=== PATIENT | female | born 1995 | race American Indian/Alaskan Native ===

== ENCOUNTER 2018-05-01 21:34 | Inpatient (IN) | payer MEDICAID, OTHER ==
[2018-05-01] MEDS ORDERED: ZOFRAN IV PRN (23:22)
[2018-05-01] MEDS ORDERED: XYLOCAINE 2% INFILTRATI ONE (23:22)
[2018-05-01] MEDS ORDERED: BRETHINE SUB-Q PRN (23:22)
[2018-05-01] MEDS ORDERED: BRETHINE IVP PRN (23:22)
[2018-05-01] MEDS ORDERED: CERVIDIL VG ONE (23:22)
[2018-05-01] MEDS ORDERED: MINERAL OIL PO PRN (23:22)
[2018-05-01] MEDS ORDERED: AMBIEN PO PRN (23:25)
--- NOTE | 2018-05-01 23:28 | History and Physical Report ---
History of Present Illness Date of examination: 05/01/18 Date of admission: 05/01/18 21:34 Chief complaint: Postdates IOL History of present illness: EDC Confirmation: 04/22/2018 Past History : 1 Term Births: 0 Premature Births: 0 Living Children: 0 Para: 0 Mult. Births: 0 Prev : 0 Prev. attempt? 0 Aborta: 0 Elect. Ab: 0 Spont. Ab: 0 Ectopics: 0 Past Medical History: Negative Past Medical History Past Surgical History: negative Past Medical History Anesthesia Complications: negative Anemia: negative Autoimmune Disorder: negative Bleeding Disorder: negative Blood Transfusions: negative Breast Disease: negative Diabetes: negative Heart Disease: negative Hypertension: negative Hepatitis/Liver Disease: negative Kidney Disease/UTI: negative Neurologic/Epilepsy/Migraines: negative Phlebitis/Varicosities: negative Psychiatric: negative Pulmonary Disease/Asthma: negative Thyroid Disease: negative Hospitalizations: negative Surgery (Non-track fitter): negative Abnormal PAP: negative Family Hx: no known family hx Social Hx: single Works [employer] no ETOH/Drugs/Smoking Infection History Hx of STD: none HIV Risk Eval: low risk Hepatitis B Risk Eval: low risk Genetic History Congenital Heart Defect: Mom: no Dad: no Chris Disease: Mom: no Dad: no Thalassemia Mom: no Dad: no Neural Tube Defect Mom: no Dad: no Down's Syndrome Mom: no Dad: no Puma-Sachs Mom: no Dad: no Sickle Cell Disease/Trait Mom: no Dad: no Hemophilia Mom: no Dad: no Muscular Dystrophy Mom: no Dad: no Cystic Fibrosis Mom: no Dad: no Blount Chorea Mom: no Dad: no Mental Retardation Mom: no Dad: no Fragile X Mom: no Dad: no Other Genetic/Chromosomal Disorder Mom: no Dad: no Child w/other defect Mom: no Dad: no Enviromental Exposures Xray Exposure: no Medication, drug, or alcohol use since LMP: no Chemical/Other Exposure: no Exposure to Cat Liter: no Hx of Parvovirus (Fifth Disease): no Occupational Exposure to Children: none Active Medications (reviewed today): None Past History Past Medical History: other (see HPI) Past Surgical History: other (see HPI) SURGERY TEACHER History: other (see HPI) Family/Genetic History: other (see HPI) - Obstetrical History Expected Date of Delivery: 04/22/18 Actual Gestation: 41 Week(s) 3 Day(s) : 1 Para: 0 Hx # Term Pregnancies: 0 Number of Pregnancies: 0 Spontaneous Abortions: 0 Induced : 0 Number of Living Children: 0 Medications and Allergies Allergies Allergy/AdvReac Type Severity Reaction Status Date / Time No Known Allergies Allergy Verified 05/01/18 23:29 Home Medications Medication Instructions Recorded Confirmed Last Taken Type No Known Home Medications [No 05/01/18 05/01/18 Unknown History Reported Home Medications] Pnv No.95/Ferrous Fum/Folic AC 1 each PO DAILY 05/01/18 05/01/18 05/01/18 History [ Formula Tablet] Active Meds: Active Medications Dinoprostone (Cervidil) 10 mg VG ONCE ONE Stop: 05/01/18 23:23 Ephedrine Sulfate (Ephedrine Sulfate) 10 mg IV Q2M PRN PRN Reason: Hypotension Lactated Ringer's (Lactated Ringers) 1,000 mls @ 125 mls/hr IV DIRECT CESAR Oxytocin/Sodium Chloride (Pitocin/Ns 20 Unit/1000ml Drip) 20 units in 1,000 mls @ 125 mls/hr IV DIRECT CESAR Lidocaine (Xylocaine 2%) 20 ml INFILTRATI ONCE ONE Stop: 05/01/18 23:23 Mineral Oil (Mineral Oil) 30 ml PO QHS PRN PRN Reason: Constipation Ondansetron HCl (Zofran) 4 mg IV Q8H PRN PRN Reason: Nausea And Vomiting Terbutaline Sulfate (Brethine) 0.25 mg SUB-Q ONCE PRN PRN Reason: Hyperstimulation/Hypertonicity Terbutaline Sulfate (Brethine) 0.25 mg IVP ONCE PRN PRN Reason: Hyperstimulation/Hypertonicity Review of Systems All systems: negative - Vital Signs Vital signs: Vital Signs Temp Pulse Resp BP 98.0 F 89 16 111/70 05/01/18 22:41 05/01/18 22:41 05/01/18 22:41 05/01/18 22:41 Temp Pulse Resp BP Pulse Ox 98.0 F 89 16 111/70 05/01/18 22:41 05/01/18 22:52 05/01/18 22:41 05/01/18 22:52 - Physical Exam Breasts: Positive: normal Cardiovascular: Regular rate Lungs: Positive: Clear to auscultation, Normal air movement Abdomen: Positive: normal appearance, soft Genitourinary (Female): Positive: normal external genitalia, normal perenium Vagina: Positive: normal moisture Uterus: Positive: normal size, normal contour Anus/Rectum: Positive: normal perianal skin Extremities: Positive: normal Deep Tendon Reflex Grade: Normal +2 - Obstetrical FHR: category 1 Uterine Contraction Monitor Mode: External Cervical Dilatation: 0 Cervical Effacement Percentage: 0 station: -3 Uterine Contraction Frequency (min): irritabilty Uterine Contraction Pattern: Irregular Uterine Tone Measurement Phase: Contraction Uterine Contraction Intensity: Mild Results Result Diagrams: 05/01/18 23:07 All other labs normal. Assessment and Plan 22y/o @ 41+2 weeks, IOL for post dates. GBS NEG. plan for cervical ripening with cervidil tonight. teaching provided regarding serial IOL. Admission orders in EMR. - Patient Problems (1) 41 weeks gestation of Current Visit: Yes Status: Acute
[2018-05-01 23:45] LABS: Hematocrit 36.9 % (30.3-42.9); Hemoglobin 12.4 gm/dl (10.1-14.3); Mean Corpuscular HGB Conc 34 % (30-34); Mean Corpuscular Volume 96 fl (79-97); Platelet Count 207 K/mm3 (140-440); Red Blood Count 3.83 M/mm3 (3.65-5.03); Red Cell Distribution Width 13.8 % (13.2-15.2)
[2018-05-01] MEDS ORDERED: PITOCin/NS 20 UNIT/1000ML DRIP 20 UNITS/1,000 ML BAG IV SCH (23:45)
--- NOTE | 2018-05-02 08:25 | Progress Note ---
Assessment and Plan 22 y.o. IUP at 41w 3d here for postdates IOL. Patient appears uncomfortable in bed, reports painful contractions every 5-10 minutes. C ontractions palpate mild. SVE closed, cervidil remains in place. RN to start IV fluids. Fentanyl orders placed. Will continue cervidil and reassess SVE 12 hours post placement or PRN. Subjective - Subjective Date of service: 05/02/18 Principal diagnosis: postdates IOL Patient reports: new complaints (painful contractions), movement normal, contractions, no loss of fluid, no vaginal bleeding Objective - Vital Signs Vital Signs: Vital Signs - 12hr 05/01/18 05/01/18 05/01/18 22:41 22:52 23:53 Temperature 98.0 F Pulse Rate 89 89 80 Respiratory 16 Rate Blood Pressure 111/70 106/70 Blood Pressure 111/70 [Left] 05/02/18 05/02/18 05/02/18 00:05 00:53 01:53 Temperature Pulse Rate 88 89 93 H Respiratory Rate Blood Pressure 104/63 112/72 111/69 Blood Pressure [Left] 05/02/18 05/02/18 05/02/18 02:52 03:54 04:52 Temperature Pulse Rate 82 85 86 Respiratory Rate Blood Pressure 120/72 110/57 106/63 Blood Pressure [Left] 05/02/18 05/02/18 05/02/18 05:52 06:53 07:53 Temperature Pulse Rate 74 83 94 H Respiratory Rate Blood Pressure 118/69 111/55 122/84 Blood Pressure [Left] - Exam Breasts: normal Cardiovascular: Regular rate, Normal S1, Normal S2 Lungs: Clear to auscultation Abdomen: Present: normal appearance, soft. Absent: distention, tenderness Vulva: both: normal Uterus: Present: normal FHR: category 1 Uterine Contraction Monitor Mode: External station: -3 Uterine Contraction Frequency (min): UTD, TOCO adjusted Extremities: normal Deep Tendon Reflex Grade: Normal +2 - Labs Labs: Abnormal Labs 05/01/18 23:07 MCH 33 H Laboratory Results - last 24 hr 05/01/18 05/01/18 23:07 23:07 WBC 10.0 RBC 3.83 Hgb 12.4 Hct 36.9 MCV 96 MCH 33 H MCHC 34 RDW 13.8 Plt Count 207 Blood Type O POSITIVE Antibody Screen Negative
[2018-05-02] MEDS: SUBLIMAZE IV PRN ×2 (08:40→14:16)
[2018-05-02] MEDS: LACTATED RINGERS 1,000 ML IV SCH ×4 (08:40→17:40)
[2018-05-02] MEDS ORDERED: PITOCin/NS 30 UNIT/500ML 30 UNITS/500 ML BAG IV SCH (14:00)
[2018-05-02] MEDS ORDERED: ZOFRAN IV PRN ×2 (14:10→18:34)
[2018-05-02] MEDS ORDERED: PHENERGAN PO PRN ×2 (14:10→18:34)
[2018-05-02] MEDS ORDERED: NARCAN 0.4 MG/1 ML IV PRN ×3 (14:10→21:56)
[2018-05-02] MEDS ORDERED: PHENERGAN PR PRN ×2 (14:10→18:34)
[2018-05-02] MEDS ORDERED: NARCAN 2 MG/2 ML IV PRN (14:13)
--- NOTE | 2018-05-02 14:16 | Anesthesia Consultation ---
Anesthesia Consult and Med Hx Date of service: 05/02/18 - Airway Anesthetic Teeth Evaluation: Good ROM Head & Neck: Adequate Mental/Hyoid Distance: Adequate Mallampati Class: Class I Intubation Access Assessment: Good - Pulmonary Exam CTA: Yes - Cardiac Exam Cardiac Exam: RRR - Pre-Operative Health Status ASA Pre-Surgery Classification: ASA2 Proposed Anesthetic Plan: Epidural - Pulmonary Hx Smoking: No Hx Asthma: No Hx Respiratory Symptoms: No SOB: No COPD: No Home Oxygen Therapy: No Hx Pneumonia: No Hx Sleep Apnea: No - Cardiovascular System Hx Hypertension: No Hx Coronary Artery Disease: No Hx Heart Attack/AMI: No Hx Angina: No Hx Percutaneous Transluminal Coronary Angioplasty (PTCA): No Hx Cardia Arrhythmia: No Hx Pacemaker: No Hx Internal Defibrillator: No Hx Valvular Heart Disease: No Hx Heart Murmur: No Hx Peripheral Vascular Disease: No - Central Nervous System Hx Neuromuscular Disorder: No Hx Seizures: No CVA: No Hx Back Pain: No Hx Psychiatric Problems: No - Gastrointestinal Hx Ulcer: No Hx Gastroesophageal Reflux Disease: No - Endocrine Hx Renal Disease: No Hx End Stage Renal Disease: No Hx Cirrhosis: No Hx Liver Disease: No Hx Insulin Dependent Diabetes: No Hx Non-Insulin Dependent Diabetes: No Hx Thyroid Disease: No Hx Hypothyroidism: No Hx Hyperthyroidism: No - Hematic Hx Anemia: No Hx Sickle Cell Disease: No - Other Systems Hx Alcohol Use: Yes Hx Substance Use: No Hx Cancer: No Hx Obesity: No
[2018-05-02] MEDS ORDERED: XYLOCAINE 2%/ EPI 1:200,000 INFILTRATI ONE (14:27)
[2018-05-02] MEDS ORDERED: fentaNYL-BUPIV 2 MCG/ML-0.125% 200 MCG/100 ML BAG EPIDURAL SCH (15:00)
[2018-05-02] MEDS ORDERED: SODIUM CHLORIDE FLUSH SYRINGE 10 ML IV PRN (15:00)
[2018-05-02] MEDS ORDERED: NACL 0.9% 1000 ML 1,000 ML ONE (17:40)
[2018-05-02] MEDS ORDERED: NACL 0.9% 1000 ML 1,000 ML VG SCH (18:00)
--- NOTE | 2018-05-02 18:01 | Event Note ---
Date: 05/02/18 Patient resting comfortably in bed s/p epidural placement. Prolonged late decelerations per RN, now recovered. DWP AROM and placement of internal monitors to better monitor FHR and contractions d/t decelerations, patient agrees to proceed. AROM performed, thick particulate meconium noted. IUPC and FSE placed without difficulty. Amnioinfusion for variable decelerations initiated. SVE 6/100/-1. Pitocin off at this time. Will continue to monitor. Dr. Tiwari aware.
[2018-05-02] MEDS ORDERED: BICITRA PO ONE (18:23)
[2018-05-02] MEDS ORDERED: REGLAN IV ONE (18:23)
[2018-05-02] MEDS ORDERED: PEPCID IV ONE ×2 (18:23→18:26)
[2018-05-02] MEDS ORDERED: ANCEF/STERILE WATER 2 GM/20 ML 2 GM/20 ML SYRINGE IV ONE (18:26)
[2018-05-02] MEDS ORDERED: REGLAN ONE (18:26)
[2018-05-02] MEDS ORDERED: BICITRA ONE (18:26)
--- NOTE | 2018-05-02 18:34 | Anesthesia Day of Surgery ---
Anesthesia Day of Surgery - Day of Surgery Patient Examined: Yes Patient H&P Reviewed: Yes Patient is NPO: Yes Beta Blockers: No Cardiac Clearance: No Pulmonary Clearance: No Sebas's Test: N/A
[2018-05-02] MEDS ORDERED: NACL 0.9% IR ONE (18:45)
[2018-05-02] MEDS ORDERED: WATER FOR IRRIG STERILE IR ONE (18:45)
[2018-05-02] MEDS ORDERED: SUBLIMAZE ONE (18:47)
[2018-05-02] MEDS ORDERED: LACTATED RINGERS 1,000 ML IV SCH (19:00)
[2018-05-02] MEDS ORDERED: PITOCin/NS 20 UNIT/1000ML DRIP 20 UNITS/1,000 ML BAG IV SCH ×2 (19:00→21:56)
[2018-05-02] MEDS ORDERED: ANCEF/STERILE WATER 2 GM/20 ML 2 GM/20 ML SYRINGE IV NR (19:00)
[2018-05-02] MEDS ORDERED: SODIUM CHLORIDE FLUSH SYRINGE 10 ML IV NR ×2 (19:00→21:56)
[2018-05-02] MEDS ORDERED: ANCEF ONE (19:26)
--- NOTE | 2018-05-02 19:34 | Operative Report ---
Operative Report Operative Report: Date: 05/02/2018 Preoperative diagnosis: 1. Intrauterine at 41 weeks 2. Nonreassuring heart rate tracing 3. Thick meconium Postoperative diagnosis: 1. Intrauterine at 41 weeks 2. Nonreassuring heart rate tracing 3. Thick meconium Procedure: Low uterine transverse incision for delivery Surgeon: Anuja Tiwari MD Industrial Electrical Technician: Vicente Liriano CNM Anesthesia: Epidural Anesthesiologist: Woodrow Washington M.D. Estimated blood loss: 650 mL Urine out: 50 mL Findings: Live born female . Weight 6 lbs. 8 oz. Apgars 8 at 1 minute and 9 at 5 minutes. Uterus grossly normal, tubes grossly normal, ovaries grossly normal. Procedure: After risk, benefits, complications, consequences and alternatives for this procedure were discussed with patient and consents were reviewed and signed, she was taken to the OR where epidural anesthesia was bolused. She was then placed in the left lateral tilt position, and prepped and draped in the usual sterile fashion. Timeout was performed, and an appropriate level of anesthesia was noted, a Pfannenstiel incision was made and extended to the fascia which was incised and extended in the lateral directions. The overlying fascia was sharply dissected away from the underlying rectus muscles in the superior and inferior directions. The midline was entered bluntly. The vesicouterine fold was incised and with blunt dissection the bladder flap was created. A transverse incision was made in the lower uterine segment and extended in superiolateral direction with finger fractionation. Meconium- stained fluid was noted. The was delivered from cephalic OA position. Mouth and nose were bulb suctioned. Spontaneous cry and excellent tone were noted. Cord was doubly clamped and cut. The was given to /resuscitation team present. The placenta was manually extracted. The uterus was then exteriorized and cleared of any further products of conception or placental tissue. The incision was reapproximated using 0 Vicryl in a running interlocking stitch. Grossly normal uterus, tubes and ovaries were noted. Once hemostasis was noted, the uterus was allowed back into the pelvic cavity. The pelvis was irrigated with warm normal saline. Again hemostasis was noted . Tisseel applied for further hemostasis. Interceed was then placed to prevent adhesions. Then attention was turned to the rectus muscles. The rectus muscles reapproximated using 3-0 Vicryl in a simple interrupted stitch x 3. Once hemostasis was noted, the fascia was reapproximated using 0 Vicryl running stitch fashion. Once hemostasis was noted skin incision was reapproximated using 4-0 Vicryl on a Srinath needle in a subcuticular manner. Counts were correct 3. Patient tolerated procedure well state recovery room in stable condition.
[2018-05-02] MEDS ORDERED: TYLENOL PO PRN (21:56)
[2018-05-02] MEDS ORDERED: LANSINOH TP PRN (21:56)
[2018-05-02] MEDS ORDERED: MORPHINE IV PRN ×2 (21:56)
[2018-05-02] MEDS ORDERED: IBUPROFEN PO PRN (21:56)
[2018-05-02] MEDS ORDERED: ANCEF/NS 1 GM/50 ML 1 GM/50 ML BAG IV SCH (21:56)
[2018-05-02] MEDS ORDERED: MILK OF MAGNESIA PO PRN (21:56)
[2018-05-02] MEDS ORDERED: MYLICON PO PRN (21:56)
[2018-05-02] MEDS ORDERED: TUCKS PAD TP PRN (21:56)
[2018-05-02] MEDS: D5LR 1,000 ML IV SCH (22:28)
[2018-05-02] MEDS: TORADOL IV SCH (22:28)
[2018-05-03] MEDS: ANCEF/NS 1 GM/50 ML 1 GM/50 ML BAG IV SCH ×2 (02:30→09:26)
[2018-05-03] MEDS: TORADOL IV SCH ×3 (03:39→16:45)
[2018-05-03] MEDS: D5LR 1,000 ML IV SCH (05:48)
--- NOTE | 2018-05-03 07:12 | Post Anesthesia Evaluation ---
- Post Anesthesia Evaluation Patient Participated: Yes Airway Patent: Yes Stable Respiratory Function: Yes Nausea/Vomiting: No Temp > 96.8F: Yes Pain Manageable: Yes Adequeate Hydration: Yes Anesthesia Complications: No Block Receding Appropriately: Yes Patient on Ventilator: No
[2018-05-03 07:21] LABS: Hemoglobin 10.6 gm/dl (10.1-14.3)
[2018-05-03 07:48] LABS: Hematocrit 30.7 % (30.3-42.9)
--- NOTE | 2018-05-03 08:43 | Progress Note ---
Assessment and Plan patient resting, guzman remains in place. Patient c/o pain at incision site and needs assistance moving in bed. b/p's normal, no fever (99.1-99.6), maternal HR 98 this morning. Lochia scant, fundus firm. dressing D&I. H&H 10.6/30.7, urine output adequate. Encouraged advance in diet and activity as tolerated. Instructed on ISS use 10x hour while awake. Continue postop pathway. Will continue to monitor. - Patient Problems (1) delivery delivered Current Visit: Yes Status: Acute Subjective - Subjective Date of service: 05/03/18 Principal diagnosis: postop day #1 s/p primary c/s Interval history: EDC Confirmation: 04/22/2018 Past History : 1 Term Births: 0 Premature Births: 0 Living Children: 0 Para: 0 Mult. Births: 0 Prev : 0 Prev. attempt? 0 Aborta: 0 Elect. Ab: 0 Spont. Ab: 0 Ectopics: 0 Past Medical History: Negative Past Medical History Past Surgical History: negative Past Medical History Anesthesia Complications: negative Anemia: negative Autoimmune Disorder: negative Bleeding Disorder: negative Blood Transfusions: negative Breast Disease: negative Diabetes: negative Heart Disease: negative Hypertension: negative Hepatitis/Liver Disease: negative Kidney Disease/UTI: negative Neurologic/Epilepsy/Migraines: negative Phlebitis/Varicosities: negative Psychiatric: negative Pulmonary Disease/Asthma: negative Thyroid Disease: negative Hospitalizations: negative Surgery (Non-meter 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 Abnormal PAP: negative Family Hx: no known family hx Social Hx: single Works [employer] no ETOH/Drugs/Smoking Infection History Hx of STD: none HIV Risk Eval: low risk Hepatitis B Risk Eval: low risk Genetic History Congenital Heart Defect: Mom: no Dad: no Chris Disease: Mom: no Dad: no Thalassemia Mom: no Dad: no Neural Tube Defect Mom: no Dad: no Down's Syndrome Mom: no Dad: no Puma-Sachs Mom: no Dad: no Sickle Cell Disease/Trait Mom: no Dad: no Hemophilia Mom: no Dad: no Muscular Dystrophy Mom: no Dad: no Cystic Fibrosis Mom: no Dad: no Wilkinson Chorea Mom: no Dad: no Mental Retardation Mom: no Dad: no Fragile X Mom: no Dad: no Other Genetic/Chromosomal Disorder Mom: no Dad: no Child w/other defect Mom: no Dad: no Enviromental Exposures Xray Exposure: no Medication, drug, or alcohol use since LMP: no Chemical/Other Exposure: no Exposure to Cat Liter: no Hx of Parvovirus (Fifth Disease): no Occupational Exposure to Children: none Active Medications (reviewed today): None Patient reports: appetite normal, flatus, ambulating normally, no nauseated : doing well, bottle feeding Objective - Vital Signs Latest vital signs: Vital Signs Temp Pulse Resp BP BP Pulse Ox 05/03/18 05:45 99.1 F 98 H 18 118/73 99 05/03/18 03:26 99.6 F 110 H 20 119/72 97 05/02/18 21:23 99.1 F 123 H 18 115/62 100 05/02/18 18:28 98 H 100 05/02/18 18:24 90 114/59 05/02/18 18:23 99 H 100 05/02/18 18:18 101 H 100 05/02/18 18:13 109 H 100 05/02/18 18:10 93 H 122/77 05/02/18 18:08 98 H 100 05/02/18 18:03 112 H 100 05/02/18 17:58 108 H 100 05/02/18 17:55 99 H 121/69 05/02/18 17:53 104 H 100 05/02/18 17:48 104 H 100 05/02/18 17:43 115 H 100 05/02/18 17:39 114 H 120/73 05/02/18 17:38 111 H 100 05/02/18 17:33 105 H 100 05/02/18 17:28 90 100 05/02/18 17:24 87 117/66 05/02/18 17:23 83 100 05/02/18 17:18 108 H 100 05/02/18 17:13 111 H 100 05/02/18 17:09 116 H 111/64 05/02/18 17:08 112 H 100 05/02/18 17:03 102 H 100 05/02/18 16:58 98 H 99 05/02/18 16:56 90 109/56 05/02/18 16:53 94 H 99 05/02/18 16:50 110 H 109/57 05/02/18 16:48 95 H 99 03/13/19 16:43 115 H 99 05/02/18 16:41 118 H 84/51 05/02/18 16:38 116 H 99 05/02/18 16:33 130 H 100 05/02/18 16:28 100 H 99 05/02/18 16:24 106 H 101/53 05/02/18 16:23 110 H 98 05/02/18 16:18 109 H 99 05/02/18 16:13 108 H 99 05/02/18 16:11 97.7 F 98 H 16 110/53 05/02/18 16:08 104 H 99 05/02/18 16:03 115 H 99 05/02/18 15:58 95 H 99 05/02/18 15:55 107 H 101/50 05/02/18 15:53 108 H 99 05/02/18 15:48 99 H 99 05/02/18 15:43 98 H 99 05/02/18 15:38 104 H 98 05/02/18 15:37 110 H 113/55 05/02/18 15:33 90 110/55 100 05/02/18 15:28 102 H 100 05/02/18 15:27 94 H 108/53 05/02/18 15:24 95 H 106/51 05/02/18 15:23 96 H 109/52 100 05/02/18 15:18 102 H 99 05/02/18 15:15 90 105/53 05/02/18 15:13 102 H 115/56 100 05/02/18 15:11 102 H 122/56 05/02/18 15:09 94 H 120/61 05/02/18 15:08 88 100 05/02/18 15:07 107 H 114/60 05/02/18 15:05 104 H 18 105/57 100 05/02/18 15:04 104 H 83/45 05/02/18 15:03 104 H 84/44 99 05/02/18 15:01 95 H 86/45 05/02/18 15:00 112 H 100/49 05/02/18 14:58 114 H 100 05/02/18 14:57 123 H 126/65 05/02/18 14:55 117 H 130/67 05/02/18 14:53 121 H 134/75 100 05/02/18 14:51 106 H 133/78 05/02/18 14:49 102 H 129/75 05/02/18 14:48 95 H 99 05/02/18 14:47 89 138/84 05/02/18 14:43 82 99 05/02/18 14:28 75 124/67 05/02/18 14:01 85 118/58 05/02/18 14:00 18 05/02/18 13:56 89 164/82 05/02/18 13:26 81 123/79 05/02/18 12:15 97.6 F 18 05/02/18 12:14 89 123/68 05/02/18 10:55 78 130/90 05/02/18 09:54 81 122/72 05/02/18 08:53 97.8 F 80 20 117/65 Intake and Output 05/02/18 05/03/18 05/03/18 23:59 07:59 15:59 Intake Total 5242.607 9449.667 Output Total 650 700 Balance 1261.333 336.667 Intake: IV 1911.333 916.667 D5lr 1,000 ml @ 125 mls/ 916.667 hr IV DIRECT CESAR Rx#: [id number] Lactated Ringers 1,000 ml 1000 @ 125 mls/hr IV DIRECT CESAR Rx#:[id number] PITOCin/NS 30 UNIT/500ML 11.333 30 units In 500 ml @ 4 mls/hr IV TITR CESAR Rx#: [id number] Oral 120 Output: Urine 650 700 Indwelling Catheter 200 700 Other: Total, Intake Amount 120 Total, Output Amount 200 700 Estimated Blood Loss 650 - Exam Breasts: Present: normal Cardiovascular: Present: Regular rate Lungs: Present: Clear to auscultation, Normal air movement Abdomen: Present: normal appearance, soft. Absent: distention, tenderness Vulva: both: normal Uterus: Present: normal, firm, fundal height at umbilicus Extremities: Present: normal Deep Tendon Reflex Grade: Normal +2 Incision: Present: normal, dry, dressed
[2018-05-03] MEDS ORDERED: BOOSTRIX IM ONE (19:25)
[2018-05-04] MEDS: PERCOCET 5/325 PO PRN ×2 (04:38→15:44)
--- NOTE | 2018-05-04 08:56 | Progress Note ---
Assessment and Plan POD 2. Patient is resting in bed, reports feeling well, no complaints. Fundus is firm, ML, U/2, bleeding scant. Patient reports ambulating without difficulty, denies any dizziness or feeling faint. Reports pain is well controlled with medications. Incision is well approximated, clean, dry, no drainage or s/s of infection noted. VSSAF. Encouraged continued use of IS and ambulation as well as water intake. DWP plans for discharge tomorrow. Continue post op pathway at this time. Subjective - Subjective Date of service: 05/04/18 Principal diagnosis: postop day #2 s/p primary c/s Patient reports: appetite normal, voiding normally, pain well controlled, flatus, ambulating normally : doing well Objective - Vital Signs Latest vital signs: Vital Signs Temp Pulse Resp BP BP Pulse Ox 05/04/18 04:38 18 05/04/18 00:00 99.2 F 104 H 18 113/68 104 H 05/03/18 16:45 18 05/03/18 16:05 99.1 F 115 H 24 117/75 100 05/03/18 12:39 98.9 F 90 18 111/75 98 05/03/18 09:14 98.6 F 102 H 20 121/71 99 Intake and Output 05/03/18 05/04/18 05/04/18 23:59 07:59 15:59 Intake Total 240 240 Balance 240 240 Intake: Oral 240 240 Other: Total, Intake Amount 240 240 # Voids Void 1 1 - Exam Breasts: Present: normal Cardiovascular: Present: Regular rate, Normal S1, Normal S2 Lungs: Present: Clear to auscultation Abdomen: Present: normal appearance, soft Uterus: Present: normal, firm Extremities: Present: normal Incision: Present: normal, dry, intact
[2018-05-05] MEDS: PERCOCET 5/325 PO PRN ×2 (07:10→13:09)
--- NOTE | 2018-05-05 10:12 | Discharge Summary ---
Providers - Providers Date of Admission: 05/01/18 21:34 Date of discharge: 05/05/18 Attending physician: HENNY VENTURA 05/02/18 21:56 Consult to Landscape Account Manager [CONS] Routine Reason For Exam: Primary care physician: HENNY VENTURA Hospitalization Reason for admission: IOL, postdates Condition: Good Pertinent studies: post delivery H&H 10.6/30.7 Procedures: primary c/s for intolerance of labor Hospital course: uncomplicated c/s and course Disposition: DC-01 TO HOME OR SELFCARE Core Measure Documentation - Palliative Care Palliative Care/ Comfort Measures: Not Applicable - Core Measures Any of the following diagnoses?: none Exam - Constitutional Vitals: Temp Pulse Resp BP Pulse Ox 98.6 F 74 18 109/64 100 05/05/18 00:30 05/05/18 00:30 05/05/18 00:30 05/05/18 00:30 05/04/18 16:45 General appearance: Present: no acute distress, well-nourished - EENT Eyes: Present: PERRL ENT: hearing intact, clear oral mucosa - Neck Neck: Present: supple, normal ROM - Respiratory Respiratory effort: normal Respiratory: bilateral: CTA - Cardiovascular Rhythm: regular Heart Sounds: Present: S1 & S2. Absent: rub, click - Extremities Extremities: pulses symmetrical, No edema Peripheral Pulses: within normal limits - Abdominal General gastrointestinal: Present: soft, non-tender, non-distended, normal bowel sounds Female genitourinary: Present: normal - Integumentary Integumentary: Present: clear, warm, dry - Musculoskeletal Musculoskeletal: gait normal, strength equal bilaterally - Psychiatric Psychiatric: appropriate mood/affect, intact judgment & insight - Neurologic Neurologic: CNII-XII intact, moves all extremities - Additional findings Additional findings: Fundus firm, ML, U/2. Bleeding is scant. Incision is healing well, edges are well-approximated, area is clean, dry, with no signs of infection. Patient reports ambulating frequently without complaints. Encouraged to continue IS and ambulation upon discharge. Patient is and pumping, supplementing with formula as needed. Patient reports pain is well controlled with medications. +flatus. Encouraged increased water and fiber intake. Discharge home today. Plan Activity: no restrictions, advance as tolerated Diet: regular Wound: open to air, keep clean and dry Follow up with: HENNY VENTURA MD [Primary Care Provider] - 7 Days (Congratulations! Please call [phone] to schedule an appointment in 1 week for incision check. Please call with any questions or concerns. ) Prescriptions: Ibuprofen [Motrin 800 MG tab] 800 mg PO TID PRN #30 tablet PRN Reason: Pain oxyCODONE /ACETAMINOPHEN [Percocet 5/325 mg] 1 - 2 tab PO Q4HR PRN #20 tablet PRN Reason: Pain
[2018-05-05 18:41] VITALS: BP 112/70
== END 2018-05-05 18:45 | disposition home or self-care (01) | DRG 788 ==
LOC: LD 21:34 → APU 05-02 18:59 → OB 05-02 21:46
PROVIDERS: ADMIT Obstetrics & Gynecology; ATTEND Obstetrics & Gynecology
PROC: 10D00Z1 Extraction of Products of Conception, Low, Open Approach (ICD-10-PCS; principal; 2018-05-02)
PROC: 10907ZC Drainage of Amniotic Fluid, Therapeutic from Products of Conception, Via Natural or Artificial Opening (ICD-10-PCS; 2018-05-02)
PROC: 10H07YZ Insertion of Other Device into Products of Conception, Via Natural or Artificial Opening (ICD-10-PCS; 2018-05-02)
PROC: 3E0E7KZ Introduction of Other Diagnostic Substance into Products of Conception, Via Natural or Artificial Opening (ICD-10-PCS; 2018-05-02)
DX: O76 Abnormality in fetal heart rate and rhythm complicating labor and delivery (principal); O77.0 Labor and delivery complicated by meconium in amniotic fluid; O99.314 Alcohol use complicating childbirth; O48.0 Post-term pregnancy; Z3A.41 41 weeks gestation of pregnancy; Z37.0 Single live birth; Z72.89 Other problems related to lifestyle
CPT/HCPCS: 36415; 59200; 85014; 85018; 85027; 86592; 86850; 86900; 86901; 88307; G0378; C1765; C9250; J0690; J1885; J2405; J2590; J2765; J3010; J7030; J7120; J7121

== ENCOUNTER 2020-07-16 17:22 | Inpatient (IN) | payer MEDICAID ==
--- NOTE | 2020-07-16 17:38 | History and Physical Report ---
History of Present Illness Date of examination: 07/16/20 Date of admission: 07/16/20 17:22 Chief complaint: low AFT AT 39 WEEKS. [facility] RECOMMENDED REPEAT C/S TONITE. History of present illness: Patient is a 24-year-old female 2 para 1-0-0-1 status post section first time for meconium. She has been a patient at [facility]. Her last menstrual period was 11/10/2019. Her past medical history is negative her genetic screen by history is negative she has no known allergies he has had 14 visits. At this time she is 38 weeks and 4 days her blood type is O+ antibody screen is positive hematocrit 33.1% platelet count 224,000 rubella is nonimmune RPR is nonreactive urine culture screen was negative HIV test was negative chlamydia was negative diabetic screen was abnormal 152 she had ultrasound on 02/19/2020 consistent with a 14-week intrauterine trichomonas test was negative sickle cell test was negative rubella antibody screen was 223 herpes negative hepatitis C nonreactive hemoglobin A1 was 96.7%. Hemoglobin A1c was 5.0. HPV was -3-hour glucose was 7585 184. The patient is being admitted at this time because of a low TOMAS per [facility] who recommended an immediate repeat section. Past History Past Surgical History: section (X 1) Family/Genetic History: none Social history: single - Obstetrical History Expected Date of Delivery: 07/28/20 Actual Gestation: 38 Week(s) 2 Day(s) : 2 Para: 1 Hx # Term Pregnancies: 1 Number of Pregnancies: 0 Spontaneous Abortions: 0 Induced : 0 Medications and Allergies Allergies Allergy/AdvReac Type Severity Reaction Status Date / Time No Known Allergies Allergy Verified 05/01/18 23:29 Home Medications Medication Instructions Recorded Confirmed Last Taken Type Pnv No.95/Ferrous Fum/Folic AC 1 each PO DAILY 05/01/18 05/01/18 05/01/18 His tory [ Formula Tablet] Ibuprofen [Motrin 800 MG tab] 800 mg PO TID PRN #30 tablet 05/02/18 Unknown Rx oxyCODONE /ACETAMINOPHEN [Percocet 1 - 2 tab PO Q4HR PRN #20 tablet 05/02/18 U nknown Rx 5/325 mg] Review of Systems All systems: negative - Physical Exam Breasts: Cardiovascular: Regular rate, Normal S1, Normal S2 Lungs: Positive: Clear to auscultation Abdomen: Positive: normal appearance, soft, normal bowel sounds. Negative: distention, tenderness Genitourinary (Female): Positive: normal external genitalia Vulva: both: normal Vagina: Positive: normal moisture. Negative: discharge Cervix: Negative: lesion, discharge Uterus: Positive: normal size, enlarged, normal contour Adnexa: both: normal Anus/Rectum: Positive: normal perianal skin, heme negative. Negative: rectal mass, hemorrhoids Extremities: Positive: normal Deep Tendon Reflex Grade: Normal +2 - Obstetrical FHR: category 1 Uterine Contraction Monitor Mode: External Uterine Contraction Pattern: Absent Uterine Tone Measurement Phase: Resting Results All other labs normal. Assessment and Plan 38 WK IUIP, GEST DM, PREVIOUS C/S, LOW TOMAS. PLAN REPEAT C/S
[2020-07-16] MEDS ORDERED: FAMOTIDINE 20 MG/2 ML INJ IV ONE (17:45)
[2020-07-16] MEDS ORDERED: BICITRA ORAL LIQD 30ML PO ONE (17:45)
[2020-07-16] MEDS ORDERED: METOCLOPRAMIDE 10 MG/2 ML INJ IV ONE (17:45)
[2020-07-16] MEDS ORDERED: OXYTOCIN DRIP 30 UNITS/500 ML BAG IV SCH ×2 (18:00→23:00)
[2020-07-16] MEDS: LACTATED RINGERS 1,000 ML IV SCH ×2 (19:06→20:07)
[2020-07-16 19:12] LABS: Basophils # (Auto) 0.1 K/mm3 (0.0-0.1); Basophils % (Auto) 0.8 % (0.0-1.8); Eosinophils % (Auto) 0.7 % (0.0-4.3); Hematocrit 36.1 % (30.3-42.9); Hemoglobin 12.5 gm/dl (10.1-14.3); Lymphocytes # (Auto) 1.9 K/mm3 (1.2-5.4); Lymphocytes % (Auto) 27.3 % (13.4-35.0); Mean Corpuscular HGB Conc 35 % (30-34); Mean Corpuscular Volume 91 fl (79-97); Monocytes # (Auto) 0.5 K/mm3 (0.0-0.8); Monocytes % (Auto) 7.3 % (0.0-7.3); Platelet Count 228 K/mm3 (140-440); Red Blood Count 3.98 M/mm3 (3.65-5.03); Red Cell Distribution Width 16.6 % (13.2-15.2)
--- NOTE | 2020-07-16 19:40 | Anesthesia Consultation ---
Anesthesia Consult and Med Hx Date of service: 07/16/20 - Airway Anesthetic Teeth Evaluation: Good ROM Head & Neck: Adequate Mental/Hyoid Distance: Adequate Mallampati Class: Class II Intubation Access Assessment: Probably Good - Pulmonary Exam CTA: Yes - Cardiac Exam Cardiac Exam: RRR - Pre-Operative Health Status ASA Pre-Surgery Classification: ASA3 Proposed Anesthetic Plan: Spinal - Pulmonary Hx Smoking: No Hx Asthma: No Hx Respiratory Symptoms: No SOB: No COPD: No Hx Pneumonia: No Hx Sleep Apnea: No - Cardiovascular System Hx Hypertension: No Hx Coronary Artery Disease: No Hx Heart Attack/AMI: No Hx Angina: No Hx Percutaneous Transluminal Coronary Angioplasty (PTCA): No Hx Cardia Arrhythmia: No Hx Pacemaker: No Hx Internal Defibrillator: No Hx Valvular Heart Disease: No Hx Heart Murmur: No Hx Peripheral Vascular Disease: No - Central Nervous System Hx Neuromuscular Disorder: No Hx Seizures: No CVA: No Hx Back Pain: No Hx Psychiatric Problems: No - Gastrointestinal Hx Ulcer: No Hx Gastroesophageal Reflux Disease: No - Endocrine Hx Renal Disease: No Hx End Stage Renal Disease: No Hx Cirrhosis: No Hx Liver Disease: No Hx Insulin Dependent Diabetes: No Hx Non-Insulin Dependent Diabetes: Yes Hx Thyroid Disease: No Hx Hypothyroidism: No Hx Hyperthyroidism: No - Hematic Hx Anemia: No Hx Sickle Cell Disease: No - Other Systems Hx Alcohol Use: No Hx Substance Use: No Hx Cancer: No Hx Obesity: No
--- NOTE | 2020-07-16 19:41 | Anesthesia Day of Surgery ---
Anesthesia Day of Surgery - Day of Surgery Patient Examined: Yes Patient H&P Reviewed: Yes Patient is NPO: Yes
[2020-07-16] MEDS ORDERED: ceFAZolin/STERILE WATER 2 GM/20 ML SYRINGE IV ONE (21:15)
[2020-07-16] MEDS ORDERED: ONDANSETRON 4 MG/2 ML INJ IV ONE (21:22)
[2020-07-16] MEDS ORDERED: BUPIVACAINE/PF (0.5%) 5 MG/1 ML 30 ML VIAL INFILTRATI ONE (21:31)
[2020-07-16] MEDS ORDERED: ONDANSETRON 4 MG/2 ML INJ ONE (21:31)
[2020-07-16] MEDS ORDERED: PHENYLEPHRINE/NS 1,000 MCG/10 ML SYRINGE (OR USE) IV ONE (21:31)
[2020-07-16] MEDS ORDERED: LACTATED RINGERS 1,000 ML ONE (21:31)
[2020-07-16] MEDS ORDERED: KETOROLAC 30 MG/1 ML INJ ONE (21:31)
[2020-07-16] MEDS ORDERED: dexAMETHasone 20 MG/5 ML VIAL ONE (21:31)
[2020-07-16] MEDS ORDERED: KETOROLAC 30 MG/1 ML INJ IV ONE (22:00)
--- NOTE | 2020-07-16 22:33 | Procedure Note ---
OB Delivery Note - Section Preop diagnosis: repeat (low amniotic fluid), other (low afl) Postop diagnosis: same section procedure: repeat low transverse Disposition: PACU Complications: none Narrative: This is Dr. Rock dictating delivery note. The patient underwent a repeat low transverse section for decreased amniotic fluid. Anesthesia was spinal estimated blood loss probably 500 cc drains Dietrich specimen placenta and cord the patient had a liveborn female weighing 5 pounds 15 ounces Apgars 8 and 9. Complications none there was a nuchal cord. The patient was taken to the section room and she had an indwelling Dietrich catheter. She was then given a spinal anesthetic adequate enough for the procedure. Subsequently the patient was then prepped and draped in usual manner we then entered the abdominal cavity with a scalpel through the old Pfannenstiel scars. The vesicouterine peritoneum was opened sharply with Metzenbaums bladder was bluntly dissected off the lower uterine segment a low transverse incision made in the lower uterine segment with a scalpel and fetus in. The baby was delivered oropharynx suction had a nuchal cord that was delivered also once we clamped the cord and we suctioned out the oropharynx and nasopharynx to be was handed off to the nurse in attendance from the intensive care nursery cord blood was obtained placenta was then delivered manually from the uterine cavity uterine itself was then delivered extra abdominally we then repaired the uterine incision with 2 layers first layer was in deep myometrium using running #0 Vicryl running nonlocking and a second layer was also running locking 0 Vicryl and superficial myometrium. Uterine incision was hemostatic vesicouterine peritoneum was repaired running 2-0 Vicryl on a small needle tubes and ovaries appeared to be normal there were no adhesions all instruments were removed from abdominal care instrument count needle lap and sponge count was correct usual drop back into the abdominal cavity. All instruments removed from abdominal care instrument count needle lap sponge count was correct anterior dome peritoneum was repaired running 2-0 chromic fascia was repaired with running locking 0 Vicryl subcutaneous tissue repaired running 2-0 Vicryl skin was repaired running subcuticular 4-0 Vicryl on a Srinath needle and drape with Dermabond patient tolerated procedure well she was then returned to recovery room in stable condition.
--- NOTE | 2020-07-16 22:37 | Progress Note ---
Regional Anesthesia Block - Regional Anesthesia Block Start Time: 22:25 Stop Time: 22:30 Performed By:: KATIE RIDDLE Procedure: U/S guided bilateral tap block performed for post-operative pain requested by Dr. Rock. H&P & labs reviewed. Procedure explained, questions answered, consent obtained. Patient in the supine position with ekg, blood pressure cuff and pulse ox on and working in PACU. Timeout performed immediately before start of procedure. Probe placed in the mid-axillary line and the external oblique, internal oblique, and transverse abdominus muscles identified. Skin was cleansed with chlorahexadine 0.5% and allowed to dry. A 4" 20 G Duckworth echogenic needle was advanced in plane until the tip was in the fascial plane between the internal oblique and the transverse abdominus. After negative aspiration 35 ml/side of [30 ml 0.5% Bupivacaine], [10 mg dexamethasone], and [40 ml sterile saline] was injected in 5 ml increments with negative aspiration in between. Patient tolerated procedure well.
--- NOTE | 2020-07-16 22:37 | Progress Note ---
Spinal Anesthesia Block - Spinal Anesthesia Block Start Time: 21:10 Stop Time: 21:12 Performed by:: KATIE RIDDLE Procedure: Sitting, sterile chlorahexadine 0.5% prep/drape, 1% lidocaine skin local, 25G spinal needle + introducer at L3-4, + CSF, - Heme, [1.9 ml 0.5% bupivacaine + 10 mcg dexmedetomidine] injected, drape removed, patient positioned supine with left uterine displacement, and spinal level verified to be adequate prior to surgery.
[2020-07-16] MEDS ORDERED: NALOXONE 0.4 MG/1 ML INJ IV PRN (22:47)
[2020-07-16] MEDS ORDERED: WITCH HAZEL/ GLYCERIN PAD TP PRN (22:47)
[2020-07-16] MEDS ORDERED: LANOLIN/ZINC/DIMETHICONE (LANSINOH) 7 GM TP PRN (22:47)
[2020-07-17] MEDS ORDERED: LACTATED RINGERS 1,000 ML IV SCH (01:00)
[2020-07-17] MEDS: KETOROLAC 30 MG/1 ML INJ IV PRN ×2 (02:24→11:23)
[2020-07-17] MEDS: oxyCODONE /ACETAMINOPHEN 5-325MG TAB PO PRN ×3 (06:59→21:30)
--- NOTE | 2020-07-17 08:19 | Post Anesthesia Evaluation ---
- Post Anesthesia Evaluation Patient Participated: Yes Airway Patent: Yes Stable Respiratory Function: Yes Nausea/Vomiting: No Temp > 96.8F: Yes Pain Manageable: Yes Adequeate Hydration: Yes Anesthesia Complications: No Block Receding Appropriately: Yes
[2020-07-17 13:33] LABS: Hematocrit 34.2 % (30.3-42.9); Hemoglobin 11.1 gm/dl (10.1-14.3)
--- NOTE | 2020-07-17 15:34 | Progress Note ---
Assessment and Plan A: /postop day 1 S/P repeat LTCS. Gestational diabetes. P: Advance diet as tolerated. Encouraged patient to ambulate. Routine care. Subjective - Subjective Date of service: 07/17/20 Principal diagnosis: /postop day 1 S/P repeat LTCS Patient reports: appetite normal, voiding normally, pain well controlled, flatus, ambulating normally, no dizzy ambulation, no nauseated [place]: doing well Objective - Vital Signs Latest vital signs: Vital Signs Temp Pulse Resp BP BP Pulse Ox 07/17/20 12:59 97.5 F L 70 18 108/62 100 07/17/20 09:03 97.6 F 74 18 100/57 98 07/17/20 06:59 18 07/17/20 05:00 98.2 F 67 18 114/78 97 07/17/20 02:54 18 07/17/20 02:24 16 07/17/20 00:00 97.3 F L 84 18 97/63 100 07/16/20 23:10 77 13 105/60 100 07/16/20 22:55 72 19 102/61 100 07/16/20 22:40 79 19 102/56 100 07/16/20 22:25 85 18 103/51 100 07/16/20 22:20 81 17 98/50 100 07/16/20 22:15 97.7 F 73 14 90/45 100 07/16/20 20:31 96 H 100 07/16/20 20:26 94 H 100 07/16/20 20:21 86 100 07/16/20 20:16 90 100 07/16/20 20:11 86 99 07/16/20 20:06 88 100 07/16/20 20:05 87 112/79 07/16/20 20:01 95 H 99 07/16/20 19:56 90 99 07/16/20 19:51 91 H 100 07/16/20 19:46 86 100 07/16/20 19:41 82 100 07/16/20 19:36 86 100 07/16/20 19:35 92 H 120/66 07/16/20 19:31 79 99 07/16/20 19:26 105 H 100 07/16/20 19:21 105 H 100 07/16/20 19:16 83 100 07/16/20 19:11 89 100 07/16/20 19:06 84 100 07/16/20 19:02 90 07/16/20 19:01 84 100 07/16/20 18:57 98.1 F 07/16/20 18:56 102 H 100 07/16/20 18:51 104 H 100 07/16/20 18:46 87 100 07/16/20 18:41 92 H 100 07/16/20 18:36 96 H 100 07/16/20 18:35 81 117/78 Intake and Output 07/16/20 07/17/20 07/17/20 23:59 07:59 15:59 Intake Total 2400 Output Total 175 650 Balance 2225 -650 Intake: IV 2400 Lactated Ringers 1,000 ml 1000 @ 2250 mls/hr IV PREOP [facility] Rx#:[id number] Output: Urine 175 650 Void 650 Other: Total, Output Amount 200 # Voids Void 1 Weight 74.843 kg - Exam Cardiovascular: Present: Regular rate Lungs: Present: Clear to auscultation Abdomen: Present: normal appearance, soft, normal bowel sounds. Absent: distention, tenderness, guarding, rigidity Uterus: Present: normal, firm, fundal height below umbilicus. Absent: bogginess, tenderness Extremities: Present: normal, edema (mild bilateral pedal edema). Absent: tenderness Incision: Present: normal, dry, intact - Labs Labs: Abnormal lab results 07/16/20 07/16/20 Range/Units 18:40 18:40 MCHC 35 H (30-34) % RDW 16.6 H (13.2-15.2) % Glucose 63 L (65-100) mg/dL
[2020-07-18] MEDS: oxyCODONE /ACETAMINOPHEN 5-325MG TAB PO PRN ×3 (04:39→22:16)
--- NOTE | 2020-07-18 06:14 | Progress Note ---
Assessment and Plan A: day 2 S/P repeat LTCS. Gestational diabetes. P: Routine /postop care. Anticipate discharge home tomorrow if patient continues to do well. Subjective - Subjective Date of service: 07/18/20 Principal diagnosis: /postop day 2 S/P repeat LTCS Patient reports: appetite normal, voiding normally, ambulating normally, no dizzy ambulation, no pain well controlled, no nauseated : doing well Objective - Vital Signs Latest vital signs: Vital Signs Temp Pulse Resp BP BP Pulse Ox 07/17/20 23:57 97.8 F 90 20 110/63 98 07/17/20 20:59 98.3 F 93 H 20 115/71 99 07/17/20 12:59 97.5 F L 70 18 108/62 100 07/17/20 09:03 97.6 F 74 18 100/57 98 07/17/20 06:59 18 Intake and Output 07/17/20 07/17/20 07/18/20 15:59 23:59 07:59 Intake Total 480 Output Total 1050 Balance -1050 480 Intake: Oral 480 Output: Urine 1050 Void 1050 Other: Total, Intake Amount 240 Total, Output Amount 400 # Voids Void 1 1 - Exam Cardiovascular: Present: Regular rate Lungs: Present: Clear to auscultation Abdomen: Present: normal appearance, soft, normal bowel sounds. Absent: dis tention, tenderness, guarding, rigidity Uterus: Present: normal, firm, fundal height below umbilicus. Absent: bogginess, tenderness Extremities: Present: normal. Absent: tenderness, edema Incision: Present: normal, dry, intact
[2020-07-18] MEDS: IBUPROFEN 600 MG TAB PO PRN (17:41)
[2020-07-19] MEDS ORDERED: TETANUS,DIPH,PERTUSS(ACELL) VACCINE 0.5 ML SYRINGE IM ONE (06:00)
[2020-07-19] MEDS: IBUPROFEN 600 MG TAB PO PRN ×2 (06:32→12:18)
--- NOTE | 2020-07-19 13:52 | Progress Note ---
Assessment and Plan A: /postop day 3 S/P repeat LTCS. Gestational diabetes. P: Discharge patient home today. Discussed with patient /postop discharge instructions and warning signs. Care of incision and activity restrictions discussed with patient. Advised patient to avoid intercourse, lifting, heavy housework, driving, stair climbing, tub baths (patient may take showers). Advised patient to continue taking her vitamins at home. Advised patient to follow up at [facility] clinic in 1 week. Patient voiced understanding of all instructions. Subjective - Subjective Date of service: 07/19/20 Principal diagnosis: /postop day 3 S/P repeat LTCS Patient reports: appetite normal, voiding normally, pain well controlled, flatus, ambulating normally, no dizzy ambulation, no nauseated : doing well Objective - Vital Signs Latest vital signs: Vital Signs Temp Pulse Resp BP BP Pulse Ox 07/19/20 09:26 98.0 F 74 16 120/80 100 07/19/20 00:00 98.6 F 74 18 105/77 07/18/20 16:44 97.6 F 75 18 100/62 98 Intake and Output 07/18/20 07/19/20 07/19/20 23:59 07:59 15:59 Intake Total 300 400 Balance 300 400 Intake: Oral 400 Intake, Free Water 300 Other: Total, Intake Amount 200 # Voids Void 1 1 - Exam Cardiovascular: Present: Regular rate Lungs: Present: Clear to auscultation Abdomen: Present: normal appearance, soft, normal bowel sounds. Absent: distention, tenderness, guarding, rigidity Uterus: Present: normal, firm, fundal height below umbilicus. Absent: bogginess, tenderness Extremities: Present: normal. Absent: tenderness, edema Incision: Present: normal, dry, intact
--- NOTE | 2020-07-19 13:57 | Discharge Summary ---
Providers - Providers Date of Admission: 07/16/20 17:22 Date of discharge: 07/19/20 Attending physician: KENDALL PAYNE MD Primary care physician: HARRISON OSORIO JR, MD Hospitalization Reason for admission: section Delivery: Procedure: repeat low transverse Incision: normal, dry, intact complications: none Discharge diagnosis: IUP at term delivered baby: female Pertinent studies: Labs Hospital course: Normal hospital course Condition at discharge: Good Disposition: DC-01 TO HOME OR SELFCARE - Discharge Diagnoses (1) Term delivered Status: Acute Plan - Provider Discharge Summary Activity: routine, no sex for 6 weeks, no heavy lifting 4 weeks, no strenuous exercise Diet: routine Instructions: routine Additional instructions: Continue taking your vitamin daily at home. Follow up at [facility] clinic in 1 week. Call your doctor immediately for: * Fever > 100.5 * Heavy vaginal bleeding ( >1 pad per hour) * Severe persistent headache * Shortness of breath * Reddened, hot, painful area to leg or breast * Drainage or odor from incision. * Keep incision clean and dry at all times and follow doctor's instructions regarding bathing/showering - Follow up plan Follow up: HARRISON OSORIO JR, MD [Primary Care Provider] - 7 Days
[2020-07-19 14:26] VITALS: BP 105/67
--- NOTE | 2020-08-28 15:08 | Procedure Note ---
Date of procedure: 07/16/20 Pre-op diagnosis: REPEAT CSECTION,LOW AMNIOTIC FLUID, NEAR TERM Post-op diagnosis: same Anesthesia: spinal
--- NOTE | 2020-08-28 15:08 | Procedure Note ---
Date of procedure: 07/16/20 Pre-op diagnosis: REPEAT LOW TRANSVERSE NEAR TERM, DECREASED AMNIOTIC FLUID. Post-op diagnosis: same Procedure: Preop diagnoses repeat section near term of low amniotic fluid. Postop diagnosis same. Procedure was a section repeat low transverse. Disposition PACU. Complications none. Narrative; transverse section for decreased amniotic fluid near-term. Anesthesia was spinal. Estimated blood loss 500 cc. Drains was a Dietrich. Specimen was placenta and cord. The patient had a liveborn female infant weighing 5 pounds 15 ounces with Apgars 8 and 9. Complications none. There was a nuchal cord. The patient was taken to the section room. She had an indwelling Dietrich catheter placed. She was given a spinal anesthetic adequate enough for the procedure. The patient underwent a low repeat Subsequently the patient was prepped and draped in usual manner and we entered abdominal cavity with a scalpel through the previous Pfannenstiel incision. The vesicouterine peritoneum was opened sharply with Metzenbaums. The bladder was bluntly and sharply dissected off the lower uterine segment. A lower uterine transverse incision was made with a scalpel. The baby was delivered and the oropharynx and nasopharynx was suctioned with the bulb. We then clamped the cord doubly. The baby was handed off to the nurses from the intensive care nursery. Uterus was delivered X abdominally Center was then delivered manually intact uterus was cleaned of debris membranes and tissue. The uterine incision was repaired in 2 layers. The first layer was in a deep manage using running locking #0 Vicryl and the superficial myometrium was closed using running locked #0 Vicryl in a similar fashion. Tubes and ovaries appeared to be normal there were no adhesions. All instruments removed from abdominal care instrument count needle lap count was correct the uterus brought back into the abdominal cavity. The anterior uterine peritoneum was repaired using 2-0 chromic. The fascia was repaired using running locking #0 Vicryl. The subcutaneous tissue was closed using running 2-0 Vicryl. The skin was repaired using running 4-0 Vicryl on a Srinath needle. And drape with Dermabond. The patient tolerated procedure well she was then returned to recovery room in stable condition end of operative note Dr. Payne. Anesthesia: GETA, spinal Surgeon: KENDALL PAYNE Estimated blood loss: other (500CCS) IV fluids: 1,000 Urine output: 100 Pathology: none Specimen disposition: discarded Condition: stable Disposition: PACU
== END 2020-07-19 15:30 | disposition home or self-care (01) | DRG 766 ==
LOC: APU 17:22 → OB 23:45
PROC: 10D00Z1 Extraction of Products of Conception, Low, Open Approach (ICD-10-PCS; principal; 2020-07-16)
PROC: 3E0234Z Introduction of Serum, Toxoid and Vaccine into Muscle, Percutaneous Approach (ICD-10-PCS; 2020-07-19)
DX: O24.429 Gestational diabetes mellitus in childbirth, unspecified control (principal); O34.211 Maternal care for low transverse scar from previous cesarean delivery; Z20.822 Contact with and (suspected) exposure to COVID-19; Z3A.38 38 weeks gestation of pregnancy; Z37.0 Single live birth
CPT/HCPCS: 36415; 82947; 85014; 85018; 85025; 86592; 86706; 86850; 86900; 86901; 99211; G0378; G0463; J0690; J1100; J1885; J2370; J2405; J2765; J3490; J7120; U0003